=== PATIENT | female | born 1940 | race Caucasian/White ===

== ENCOUNTER 2021-07-25 12:43 | Inpatient (IN) | payer MEDICARE, MEDICAID, SELFPAY ==
--- NOTE | ~2021-07-25 | XR_ITS ---
EXAMINATION: XR FOOT, RIGHT CLINICAL INFORMATION: Right foot pain. COMPARISON: None TECHNIQUE: AP, lateral, and oblique views of the right foot. FINDINGS: There is no acute fracture or dislocation. The joint spaces are unremarkable. The tarsal bones are normally aligned. Very small plantar and retrocalcaneal spurs are seen. There is mild soft tissue swelling. XR/XR foot RT 2V IMPRESSION: 1. Mild soft tissue swelling without acute underlying osseous abnormality. 2. Very small degenerative calcaneal spurs.
--- NOTE | ~2021-07-25 | US_ITS ---
EXAMINATION: US ABDOMEN COMPLETE CLINICAL INFORMATION: Acute abdominal pain. Rule out obstruction.. COMPARISON: None TECHNIQUE: Real-time imaging of the abdominal viscera. FINDINGS: PANCREAS: Normal. ABDOMINAL AORTA: The proximal, mid, and distal segments are normal in caliber. Atherosclerotic calcifications noted. INFERIOR VENA CAVA: Visualized portions are normal. LIVER: Liver appears somewhat enlarged. There is a nodular Contour. Heterogeneous echogenicity. . Hepatic ascites. In the right lobe of the liver there is a 0.6 cm cyst. No suspicious liver lesion identified. There is no intrahepatic biliary duct dilatation seen. GALLBLADDER: Stones are seen in the gallbladder lumen. The gallbladder is physiologically distended without evidence of sludge, polyps, wall thickening or pericholecystic fluid. COMMON BILE DUCT: Normal in caliber measuring 0.3 cm in diameter. RIGHT KIDNEY: Normal. No hydronephrosis. No renal calculi or focal parenchymal lesions. The kidney measures 12.1 cm in maximum dimension. LEFT KIDNEY: Normal. No hydronephrosis. No renal calculi or focal parenchymal lesions. The kidney measures 10.2 cm in maximum dimension. SPLEEN: Calcification at the splenic hilum noted. Trace ascites. The spleen measures 9.6 cm in maximum dimension. FREE FLUID: None. US/US abdomen complete IMPRESSION: No biliary ductal dilatation. There is a gallstone present without inflammatory change of the gallbladder. Heterogeneous liver parenchyma with nodular Contour suspicious for cirrhosis. No suspicious liver lesion.
--- NOTE | ~2021-07-25 | US_ITS ---
EXAMINATION: US VENOUS ULTRASOUND WITH DOPPLER LOWER EXTREMITY, RIGHT CLINICAL INFORMATION: Pain COMPARISON: None TECHNIQUE: Ultrasound of the deep veins is performed from the hip to the calf with compression sonography and color and pulse Doppler assessment. Spectral analysis with color-flow imaging is performed. FINDINGS: There is normal venous compression and respiratory variation and augmented flow. The visualized common femoral vein, superficial femoral vein, profunda femoral vein, popliteal vein, and the trifurcation region shows no evidence of deep venous thrombosis. There is no significant popliteal fossa cyst. If the patient's symptoms persist, followup ultrasound in 5 days 7 days might be of value to exclude proximal propagation from a non-visualized calf vein. US/US venous duplex LE RT IMPRESSION: No DVT demonstrated in the right lower extremity.
[2021-07-25 13:03] VITALS: BMI 16.1
[2021-07-25 13:13] VITALS: BP 151/70; PULSE 77; RESP 16; TEMP 36; O2SAT 97
--- NOTE | 2021-07-25 16:02 | P.HPPS_ITS ---
[facility] Date of Service: 07/25/21 Chief Complaint: Psychosis Sources of Information: patient interviewed and chart reviewed HPI Subjective Notes: [place] Warning and Section 12B Narrative: The patient is an 80-year-old [place] female, only [place]ican-speaking, , mother of 5 adult children, with good social support, living with her family with a long history of schizophrenia and dementia. The patient was brought into the emergency room of another facility since she threatened to kill herself with a screwdriver after an argument with her family. Apparently she wanted to go back to [place], she had an argument and she threatened to kill herself. She was rushed to the ED, assessed by the crisis team and transferred here for psychiatric stabilization. On the admission interview, the patient denies new symptoms she looks pleasantly confused, easily redirectable and she admitted that sporadic auditory hallucinations. She was unable to remember the argument that she had and she could not explain why she was here. She gave us permission to gather collateral information with her family. Past Psychiatric History: As per crisis report, the patient has a lifelong history of schizophrenia with prior treatment in [place]. It is unclear her medication management at this moment. Medical Evaluation Reviewed: Hospitalist Teresa Pending [facility] Family History: Denies Social History: born and raised in [place], with 5 adult children. She is only [place]-speaking and she has good social support, she carries a diagnosis of schizophrenia were nearly all her adult life. Substance History: Denies Trauma History: unclear Diagnostics Vital Signs (24Hr): Vital Signs - 24 hr 07/25/21 13:13 Temperature 96.8 F Pulse Rate 77 Respiratory Rate 16 Blood Pressure 151/70 H Pulse Oximetry 97 BMI result Body Mass Index 16.1 Labs Results: 07/26/21 09:11 Meds/Allergies Meds Home Medications Acetaminophen (Acetaminophen 325 Mg Tablet) 650 mg PO Q6H PRN PRN Reason: Headache/Pain Mild Scale (1-3) Al Hydroxide/Mg Hydroxide (Magnesium Hydrox/Alum Hydrox 30 Ml Oral.Susp) 30 ml PO Q6H PRN PRN Reason: Heartburn/Nausea Hydroxyzine HCl (Hydroxyzine Hcl 25 Mg Tablet) 25 mg PO BEDTIME PRN PRN Reason: Anxiety Last Admin: 07/25/21 20:14 Dose: 25 mg Documented by: Magnesium Hydroxide (Milk Of Magnesia 30 Ml Oral.Susp) 30 ml PO DAILY PRN PRN Reason: Constipation Risperidone (Risperidone 0.25 Mg Tablet) 0.25 mg PO BID PRN PRN Reason: Psychosis Last Admin: 07/25/21 22:30 Dose: 0.25 mg Documented by: Trazodone HCl (Trazodone Hcl 50 Mg Tablet) 50 mg PO BEDTIME PRN PRN Reason: Insomnia Last Admin: 07/25/21 19:41 Dose: 50 mg Documented by: Allergies Allergies Allergy/AdvReac Type Severity Reaction Status Date / Time Iodinated Contrast Media Allergy Unknown Verified 07/25/21 17:55 olanzapine AdvReac Unknown Verified 07/25/21 17:55 Mental Status Exam Mental Status Exam Patient Appearance: Appropriate Patient Orientation: Person Level of Consciousness: Awake Patient Behavior: Guarded, Passive and Suspicious Mood Description: Calm Affect Description: Blunted Patient Cognition Impaired: Yes Ability to Follow Directions: Fair Speech Pattern: Clear Memory Description: Recent Impaired Hallucinations: Auditory Delusions: Paranoid Ideation Thought Process: Illogical and Evasive Thought Content: positive for Poverty of Content Judgement: Poor Assessment & Plan Assessment & Plan (1) Schizophrenia: Status: Acute Code(s): F20.9 - Schizophrenia, unspecified (2) Dementia: Status: Acute Code(s): F03.90 - Unspecified dementia without behavioral disturbance Plan elderly [place] female with a long history of psychosis and dementia referred to this facility after she got agitated and threatened to kill herself. At the moment of the intake, the patient was having active psychotic symptoms. Plan 1. Gather collateral information. 2. We will keep from PRNs over the night and reassess in the morning. Patient educated on: diagnosis and therapeutic strategies Informed Consent: further education needed Reason for continued inpatient stay Substantial Risk for: inability to function, rapid decompensation and med/psych decompensation
--- NOTE | 2021-07-25 17:58 | PC.ADMIT ---
Patient is 80 year old female macanese speaking with chronic paranoid schizophrenia and Alzheimers type dementia.Arrived on unit via stretcher from [facility] where she was taken to ED from home after deciding to pack a suit case and go to [place]. When told she could not go patient got a screwdriver and threatened to kill herself. Patient resides with who also has dementia and son who is HCP. Patient dressed in hospital attire, appeared disheveled. Presented as calm and pleasant. Patient was oriented to unit. Vital signs taken. Admission assessment was attempted through interpretor. Patient speech appeared to be clear however content was disorganized. Patient endorsed AH. Memory appears impaired and patient was unable to provide history. Patient is reported to have been non compliant with medications. MEdical history includes a Hiatal Hernia. Patient is independent with ADL's and ambulation.
[2021-07-25] MEDS: traZODone HCL 50 MG TABLET PO (19:41)
[2021-07-25 19:51] VITALS: BP 152/81; PULSE 79; RESP 17; TEMP 36.2; O2SAT 99
[2021-07-25] MEDS: hydrOXYzine HCL 25 MG TABLET PO (20:14)
--- NOTE | 2021-07-25 21:15 | PC.NURSE ---
PT needs constant redirection. PT keeps going into other PTs room, but is easily redirected. Staff needs to stay with PT while she is awake to frequently redirect her. PT also went up to another female PT and started kissing her on the mouth, until staff could intervene.
[2021-07-25] MEDS: risperiDONE 0.25 MG TABLET PO (22:30)
[2021-07-26 08:00] VITALS: BP 131/75; PULSE 101; TEMP 36.3; O2SAT 97
[2021-07-26 09:43] LABS: Alanine Aminotransferase 7 U/L (0-31); Albumin Level 3.8 g/dL (3.5-5.0); Alkaline Phosphatase 59 U/L (39-117); Anion Gap 13 (12-20); Aspartate Amino Transferase 14 U/L (5-31); Bilirubin Total 1.7 mg/dL (0.0-1.0); Blood Urea Nitrogen 16 mg/dL (9-16); Calcium 9.3 mg/dL (8.4-10.2); Carbon Dioxide 24 mmol/L (22-29); Chloride 102 mmol/L (96-108); Cholesterol 176 mg/dL; Creatinine Clr Calc Pharmacy 30.8; Estimated Glomerular Filt Rate > 60; Glucose Fasting 165 mg/dL (60-99); HDL Cholesterol 66 mg/dL; LDL Cholesterol Calculated 96 mg/dl; Potassium 4.1 mmol/L (3.3-5.1); Sodium 135 mmol/L (135-145); Total Protein 6.5 g/dL (6.5-8.0); Triglycerides 71 mg/dL
--- NOTE | 2021-07-26 10:16 | HO.PM.IMCN ---
History of Present Illness Data of Consult Service Date: 07/26/21 Primary Care Provider: Unknown Physician HPI Reason for consult: Routine Medical H&P 80 yo F with a PMH schizophrenia, alzheimer's dementia who is admitted to the [facility] unit. Medical consult requested for routine medical H&P per protocol. Patient is seen and examined in their room. She is resting comfortably at this time and does not talk much. PMH (limited due to patient's current status) Alzheimer's dementia PSH unable to determine FH unable to determine SH unable to determine Review of Systems Review of Systems: unable to determine due to mental status PMF Social History Household Members: Children Housing: Apartment Do you presently have visiting nurse or other home services: No Patient Tobacco Use Status: Former Tobacco user Patient Interested in Nicotine Replacement: No Use of substances other than those prescribed or required for medical reasons: No Currently Displaying Signs/Symptoms of Drug Intoxication Withdrawal: No Have you been hit, kicked, punched, or otherwise hurt by someone within the past year? If so, by whom?: No Do you feel safe in your current relationship?: No Current Relationship Is there a partner from a previous relationship who is making you feel unsafe now?: No (Patient unable to answer questions.) Are you made to feel afraid or neglected: No Advance Directives: Yes Advance Directives Information Provided: No Advance Directives on File: No Do you have thoughts of harming others: None Do you have a plan to hurt others: No Plan Recently lost weight without trying: No Eating poorly because of decreased appetite: No Nutrition Risks: No Nutritional Risk Patient : No : No Poor oral hygiene: Yes service: No Sexual orientation: Straight/Heterosexual Meds Allergies Allergy/AdvReac Type Severity Reaction Status Date / Time Iodinated Contrast Media Allergy Unknown Verified 07/25/21 17:55 olanzapine AdvReac Unknown Verified 07/25/21 17:55 Active Medications: Current Medications Acetaminophen (Acetaminophen 325 Mg Tablet) 650 mg PO Q6H PRN PRN Reason: Headache/Pain Mild Scale (1-3) Al Hydroxide/Mg Hydroxide (Magnesium Hydrox/Alum Hydrox 30 Ml Oral.Susp) 30 ml PO Q6H PRN PRN Reason: Heartburn/Nausea Hydroxyzine HCl (Hydroxyzine Hcl 25 Mg Tablet) 25 mg PO BEDTIME PRN PRN Reason: Anxiety Last Admin: 07/25/21 20:14 Dose: 25 mg Documented by: Magnesium Hydroxide (Milk Of Magnesia 30 Ml Oral.Susp) 30 ml PO DAILY PRN PRN Reason: Constipation Risperidone (Risperidone 0.25 Mg Tablet) 0.25 mg PO BID PRN PRN Reason: Psychosis Last Admin: 07/25/21 22:30 Dose: 0.25 mg Documented by: Trazodone HCl (Trazodone Hcl 50 Mg Tablet) 50 mg PO BEDTIME PRN PRN Reason: Insomnia Last Admin: 07/25/21 19:41 Dose: 50 mg Documented by: Home Medications Medication Instructions Recorded Confirmed Last Taken Type Haldol 1 mg PO TID 07/25/21 07/25/21 Unknown History chlorpromazine 25 mg PO BEDTIME PRN 07/25/21 07/25/21 Unknown History diphenhydramine HCl 25 tab PO Q4H PRN 07/25/21 07/25/21 Unknown History melatonin 3 mg PO BEDTIME 07/25/21 07/25/21 07/23/21 21:56 History pantoprazole 40 mg tablet,delayed 40 mg PO DAILY 07/25/21 07/25/21 07/25/21 06:56 History release risperidone 0.25 mg PO BID PRN 07/25/21 07/25/21 Unknown History trazodone 25 mg PO BEDTIME 07/25/21 07/25/21 Unknown History Physical Exam Vital Signs and Narrative: Vital Signs: Last Vital Signs Temp 97.3 F 07/26/21 08:00 Pulse 101 H 07/26/21 08:00 Resp 17 07/25/21 19:51 BP 131/75 07/26/21 08:00 Pulse Ox 97 07/26/21 08:00 BMI result Body Mass Index 16.1 Const: Other: General - no acute distress, appears comfortable Cardiovascular - regular rate and rhythm, S1-S2 Lungs - normal respiratory effort, clear to auscultation bilaterally, no wheezing Abdomen - soft, nontender, no rebound or guarding Extremities - no edema bilaterally Neuro - CN 2-12 appear to be in tact however unable to fully complete exam due to patients status Results Labs CBC and Chem 7: 07/26/21 09:11 Labs: Laboratory Results - last 24 hr 07/26/21 09:11 Anion Gap 13 Estim Creat Clear Calc 30.8 Estimated GFR > 60 Fasting Glucose 165 H Calcium 9.3 Total Bilirubin 1.7 H AST 14 ALT 7 Alkaline Phosphatase 59 Total Protein 6.5 Albumin 3.8 Triglycerides 71 Cholesterol 176 LDL Cholesterol, Calc 96 HDL Cholesterol 66 Assessment and Plan (1) Routine medical exam: Status: Acute Plan 80 yo F with a H schizophrenia, alzheimer's dementia who is admitted to the [facility]. Medical consult requested for routine medical H&P per protocol. Patient with schizophrenia and dementia. History limited but appears to be stable medically at this time. Check routine labs if not done so at transferring facility Please reconsult PRN.
--- NOTE | 2021-07-26 11:52 | P.PNPSI_ITS ---
Subjective Subjective Date of Service: 07/26/21 Reason For Visit: Psychosis Subjective Notes: Conditional Voluntary Interim History: the nursing staff reported that yesterday in the evening become very disorganized and aggressive and she needed to be medicated with Ativan and trazodone with limited response. She also received Risperdal 0.5 with no improvement. On interview on [place] the patient was pleasantly confused unable to remember what happened yesterday. We will try to gather more collateral information. Mental Status Exam Mental Status Exam Patient Appearance: Appropriate Patient Orientation: Person and Situation Level of Consciousness: Awake Patient Behavior: Guarded and Passive Mood Description: Withdrawn Affect Description: Labile Patient Cognition Impaired: Yes Ability to Follow Directions: Fair Speech Pattern: Clear Hallucinations: Auditory Delusions: Paranoid Ideation Thought Process: Illogical and Evasive Thought Content: positive for [place] and positive for Poverty of Content Judgement: Fair Diagnostics Vital Signs (24Hr): Vital Signs - 24 hr 07/25/21 13:13 07/25/21 19:51 07/26/21 08:00 Temperature 96.8 F 97.1 F 97.3 F Pulse Rate 77 79 101 H Respiratory Rate 16 17 Blood Pressure 151/70 H 152/81 H 131/75 Pulse Oximetry 97 99 97 BMI result Body Mass Index 16.1 Labs Results: 07/26/21 09:11 Labs: Laboratory Results - last 48 hr 07/26/21 09:11 Sodium 135 Potassium 4.1 Chloride 102 Carbon Dioxide 24 Anion Gap 13 BUN 16 Creatinine 0.75 Estim Creat Clear Calc 30.8 Estimated GFR > 60 Fasting Glucose 165 H Calcium 9.3 Total Bilirubin 1.7 H AST 14 ALT 7 Alkaline Phosphatase 59 Total Protein 6.5 Albumin 3.8 Triglycerides 71 Cholesterol 176 LDL Cholesterol, Calc 96 HDL Cholesterol 66 Medications Medications Current Medications Acetaminophen (Acetaminophen 325 Mg Tablet) 650 mg PO Q6H PRN PRN Reason: Headache/Pain Mild Scale (1-3) Al Hydroxide/Mg Hydroxide (Magnesium Hydrox/Alum Hydrox 30 Ml Oral.Susp) 30 ml PO Q6H PRN PRN Reason: Heartburn/Nausea Hydroxyzine HCl (Hydroxyzine Hcl 25 Mg Tablet) 25 mg PO BEDTIME PRN PRN Reason: Anxiety Last Admin: 07/25/21 20:14 Dose: 25 mg Documented by: Magnesium Hydroxide (Milk Of Magnesia 30 Ml Oral.Susp) 30 ml PO DAILY PRN PRN Reason: Constipation Olanzapine (Olanzapine 2.5 Mg Tablet) 2.5 mg PO DAILY@1700 ALICJA Olanzapine (Olanzapine 2.5 Mg Tablet) 2.5 mg PO BID PRN PRN Reason: psychosis Risperidone (Risperidone 0.25 Mg Tablet) 0.25 mg PO BID PRN PRN Reason: Psychosis Last Admin: 07/25/21 22:30 Dose: 0.25 mg Documented by: Trazodone HCl (Trazodone Hcl 50 Mg Tablet) 50 mg PO BEDTIME PRN PRN Reason: Insomnia Last Admin: 07/25/21 19:41 Dose: 50 mg Documented by: Allergies Allergies Allergy/AdvReac Type Severity Reaction Status Date / Time Iodinated Contrast Media Allergy Unknown Verified 07/25/21 17:55 olanzapine AdvReac Unknown Verified 07/25/21 17:55 Assessment & Plan Assessment & Plan (1) Schizophrenia: Status: Acute Code(s): F20.9 - Schizophrenia, unspecified (2) Dementia: Status: Acute Code(s): F03.90 - Unspecified dementia without behavioral disturbance Plan elderly Israeli female with a long history of psychosis and dementia referred to this facility after she got agitated and threatened to kill herself. At the moment of the intake, the patient was having active psychotic symptoms. Plan 1. Gather collateral information. 2. Zyprexa 2.5 mg p.o. q.h.s. at 17:00 and PRNs I spent __20____ minutes with the patient and/or on the patient floor today, greater than?50% of which was spent counseling/coordinating care. Reason for contiued inpatient stay Substantial Risk for: inability to function, rapid decompensation and med/psych decompensation
[2021-07-26 13:26] LABS: Appearance Urine CLEAR; Color Urine YELLOW; Glucose Urine UA NEG (NEG); Leukocyte Esterase Urine NEG (NEG); Nitrite Urine NEG (NEG); Specific Gravity - Urine <= 1.005 (1.005-1.025); Urine Blood NEG (NEG); Urine Ketones NEG (NEG); Urine Protein NEG (NEG-TRACE)
[2021-07-26 14:39] VITALS: BMI 16.1
--- NOTE | 2021-07-26 14:46 | MHC.CLN ---
NUTRITION QUALIFIES MODERATE MALNUTRITION IN THE CONTEXT OF CHRONIC ILLNESS. SEE NUTRITION CLINICAL ASSESSMENT 07/26/21. DIET=REGULAR. ADDING ENSURE BID TO PROVIDE ADDITIONAL 700 KCAL, 40 G PROTEIN.
[2021-07-26 18:00] VITALS: BP 111/65; PULSE 88; RESP 18; TEMP 37; O2SAT 96
[2021-07-26] MEDS: risperiDONE 0.5 MG TABLET PO (20:13)
[2021-07-26] MEDS: Melatonin 3 MG TABLET PO (20:13)
[2021-07-27] MEDS: Omeprazole 20 MG CAPSULE.DR PO (05:46)
[2021-07-27 07:17] LABS: MANUAL DIFF FLAG NO
[2021-07-27 07:19] LABS: Basophils Percent Auto 0.4 % (0-2); Eosinophils Percent Auto 0.6 % (0-4); Hematocrit 37.8 % (37.0-47.0); Hemoglobin 12.5 g/dl (12.0-16.0); Imm Gran Abs Auto 0.01 X10*3/uL (0.00-0.03); Imm Gran Pct Auto 0.2 % (0.0-0.4); Lymphocytes Absolute Auto 1.7 X10*3/uL (1.2-4.9); Mean Corpuscular HGB Conc 33.1 g/dl (31.0-35.0); Mean Corpuscular Hemoglobin 28.3 pg (27.0-33.0); Mean Corpuscular Volume 85.7 fL (80.0-98.0); Monocytes Absolute Auto 0.4 X10*3/uL (0.1-1.2); Monocytes Percent Auto 8.6 % (2-11); Neutrophils Absolute Auto 2.9 x10*3/uL (2.0-8.3); Neutrophils Percent Auto 57.2 % (45-73); Platelet Count 201 X10*3/uL (160-400); Red Blood Count 4.41 X10*6/uL (4.20-5.50); Red Cell Distribution Width 14.2 % (11.0-16.0)
[2021-07-27 07:47] LABS: Alkaline Phosphatase 60 U/L (39-117); Anion Gap 10 (12-20); Aspartate Amino Transferase 19 U/L (5-31); Bilirubin Direct 0.5 mg/dL (0.0-0.5); Bilirubin Total 1.3 mg/dL (0.0-1.0); Blood Urea Nitrogen 19 mg/dL (9-16); Calcium 9.5 mg/dL (8.4-10.2); Carbon Dioxide 28 mmol/L (22-29); Chloride 105 mmol/L (96-108); Cholesterol 191 mg/dL; Creatinine Clr Calc Pharmacy 33.4; Estimated Glomerular Filt Rate > 60; Glucose Random 107 mg/dL (60-115); HDL Cholesterol 69 mg/dL; LDL Cholesterol Calculated 108 mg/dl; Potassium 4.1 mmol/L (3.3-5.1); Sodium 139 mmol/L (135-145); Total Protein 6.9 g/dL (6.5-8.0); Triglycerides 74 mg/dL
[2021-07-27 07:57] LABS: Thyroid Stimulating Hormone 0.89 uIU/mL (0.32-4.0)
[2021-07-27 08:06] LABS: Estimated Average Glucose 108 mg/dL; Hemoglobin A1C 117.5605 umol/L; Hemoglobin A1c % 5.4 %
[2021-07-27 08:12] LABS: Alanine Aminotransferase 10 U/L (0-31)
[2021-07-27 08:27] VITALS: BP 127/73; PULSE 84; TEMP 36.2
[2021-07-27] MEDS: risperiDONE 0.5 MG TABLET PO ×2 (08:54→19:33)
--- NOTE | 2021-07-27 13:35 | HO.PSYCHPN ---
Subjective Subjective Date of Service: 07/27/21 Reason For Visit: Psychosis Subjective Notes: Conditional Voluntary Interim History: Patient with a history of psychotic disorder agitation at night. Discussed changing to Q 5 starting the day one-to-one at night continue low-dose antipsychotic Mental Status Exam Mental Status Exam Patient Appearance: Appropriate Patient Orientation: Person and Situation Level of Consciousness: Awake Patient Behavior: Guarded and Passive Mood Description: Withdrawn Affect Description: Labile Patient Cognition Impaired: Yes Ability to Follow Directions: Fair Speech Pattern: Clear Hallucinations: Auditory Delusions: Paranoid Ideation Thought Process: Illogical and Evasive Thought Content: positive for [place] and positive for Poverty of Content Judgement: Fair Diagnostics Vital Signs (24Hr): Vital Signs - 24 hr 07/26/21 18:00 07/27/21 08:27 Temperature 98.6 F 97.1 F Pulse Rate 88 84 Respiratory Rate 18 Blood Pressure 111/65 127/73 Pulse Oximetry 96 BMI result Body Mass Index 16.1 Labs Results: 07/27/21 07:12 07/27/21 07:12 Labs: Laboratory Results - last 48 hr 07/26/21 07/26/21 07/27/21 09:11 12:50 07:12 WBC 5.0 RBC 4.41 Hgb 12.5 Hct 37.8 MCV 85.7 MCH 28.3 MCHC 33.1 RDW 14.2 Plt Count 201 MPV 10.0 Immature Gran % (Auto) 0.2 Neut % (Auto) 57.2 Lymph % (Auto) 33.0 [place] % (Auto) 8.6 Eos % (Auto) 0.6 Baso % (Auto) 0.4 Lymph # (Auto) 1.7 [place] # (Auto) 0.4 Eos # (Auto) 0.0 Baso # (Auto) 0.0 Abs Immat Gran (auto) 0.01 Absolute Neuts (auto) 2.9 Absolute Nucleated RBC 0.000 Nucleated RBC % (auto) 0.0 Sodium 135 Potassium 4.1 Chloride 102 Carbon Dioxide 24 Anion Gap 13 BUN 16 Creatinine 0.75 Estim Creat Clear Calc 30.8 Estimated GFR > 60 Random Glucose Fasting Glucose 165 H Estimat Average Glucose Hemoglobin A1c % Calcium 9.3 Total Bilirubin 1.7 H Direct Bilirubin AST 14 ALT 7 Alkaline Phosphatase 59 Total Protein 6.5 Albumin 3.8 Triglycerides 71 Cholesterol 176 LDL Cholesterol, Calc 96 HDL Cholesterol 66 TSH Urine Color YELLOW Urine Appearance CLEAR Urine pH 7.0 Ur Specific [place] <= 1.005 Urine Protein NEG Urine Glucose (UA) NEG Urine Ketones NEG Urine Blood NEG Urine Nitrite NEG Ur Leukocyte Esterase NEG 07/27/21 07/27/21 07:12 07:12 WBC RBC Hgb Hct MCV MCH MCHC RDW Plt Count MPV Immature Gran % (Auto) Neut % (Auto) Lymph % (Auto) [place] % (Auto) Eos % (Auto) Baso % (Auto) Lymph # (Auto) [place] # (Auto) Eos # (Auto) Baso # (Auto) Abs Immat Gran (auto) Absolute Neuts (auto) Absolute Nucleated RBC Nucleated RBC % (auto) Sodium 139 Potassium 4.1 Chloride 105 Carbon Dioxide 28 Anion Gap 10 L BUN 19 H Creatinine 0.69 Estim Creat Clear Calc 33.4 Estimated GFR > 60 Random Glucose 107 Fasting Glucose Estimat Average Glucose 108 Hemoglobin A1c % 5.4 Calcium 9.5 Total Bilirubin 1.3 H Direct Bilirubin 0.5 AST 19 ALT 10 Alkaline Phosphatase 60 Total Protein 6.9 Albumin 4.0 Triglycerides 74 Cholesterol 191 LDL Cholesterol, Calc 108 HDL Cholesterol 69 TSH 0.89 Urine Color Urine Appearance Urine pH Ur Specific [place] Urine Protein Urine Glucose (UA) Urine Ketones Urine Blood Urine Nitrite Ur Leukocyte Esterase Medications Medications Current Medications Acetaminophen (Acetaminophen 325 Mg Tablet) 650 mg PO Q6H PRN PRN Reason: Headache/Pain Mild Scale (1-3) Al Hydroxide/Mg Hydroxide (Magnesium Hydrox/Alum Hydrox 30 Ml Oral.Susp) 30 ml PO Q6H PRN PRN Reason: Heartburn/Nausea Hydroxyzine HCl (Hydroxyzine Hcl 25 Mg Tablet) 25 mg PO BEDTIME PRN PRN Reason: Anxiety Last Admin: 07/25/21 20:14 Dose: 25 mg Documented by: Lorazepam (Lorazepam 0.5 Mg Tablet) 0.5 mg PO Q8H PRN PRN Reason: Anxiety Magnesium Hydroxide (Milk Of Magnesia 30 Ml Oral.Susp) 30 ml PO DAILY PRN PRN Reason: Constipation Melatonin (Melatonin 3 Mg Tablet) 3 mg PO BEDTIME [facility] Last Admin: 07/26/21 20:13 Dose: 3 mg Documented by: Omeprazole (Omeprazole 20 Mg Capsule.) 20 mg PO DAILY@0630 [facility] Last Admin: 07/27/21 05:46 Dose: 20 mg Documented by: Risperidone (Risperidone 0.5 Mg Tablet) 0.5 mg PO BID [facility]ICJA Last Admin: 07/27/21 08:54 Dose: 0.5 mg Documented by: Trazodone HCl (Trazodone Hcl 50 Mg Tablet) 50 mg PO BEDTIME PRN PRN Reason: Insomnia Last Admin: 07/25/21 19:41 Dose: 50 mg Documented by: Allergies Allergies Allergy/AdvReac Type Severity Reaction Status Date / Time Iodinated Contrast Media Allergy Unknown Verified 07/25/21 17:55 olanzapine AdvReac Unknown Verified 07/25/21 17:55 Assessment & Plan Assessment & Plan (1) Schizophrenia: Status: Acute Code(s): F20.9 - Schizophrenia, unspecified (2) Dementia: Status: Acute Code(s): F03.90 - Unspecified dementia without behavioral disturbance Plan elderly Taiwanese female with a long history of psychosis and dementia referred to this facility after she got agitated and threatened to kill herself. At the moment of the intake, the patient was having active psychotic symptoms. Plan 1. Gather collateral information. 2. Zyprexa 2.5 mg p.o. q.h.s. at 17:00 and PRNs Current note for 07/27/2021 Patient on Risperdal 0.5 b.i.d. continue plan of care case reviewed treatment plan I spent minutes with the patient and/or on the patient floor today, greater than?50% of which was spent counseling/coordinating care. Reason for contiued inpatient stay Substantial Risk for: inability to function and rapid decompensation
--- NOTE | 2021-07-27 15:53 | PC.NURSE ---
Patient order for safety checks changed. 1:1 now 7p-7a only.
[2021-07-27 18:00] VITALS: BP 131/66; PULSE 76; RESP 20; TEMP 36.7; O2SAT 98
[2021-07-27] MEDS: traZODone HCL 50 MG TABLET PO (19:33)
[2021-07-27] MEDS: Melatonin 3 MG TABLET PO (19:33)
[2021-07-27] MEDS: LORazepam 0.5 MG TABLET PO (21:13)
[2021-07-27] MEDS: hydrOXYzine HCL 25 MG TABLET PO (21:13)
[2021-07-28 08:26] VITALS: BP 141/73; PULSE 99; RESP 17; TEMP 36.4; O2SAT 98
[2021-07-28] MEDS: risperiDONE 0.5 MG TABLET PO ×2 (08:32→21:20)
[2021-07-28] MEDS: Acetaminophen 325 MG TABLET 650 MG PO ×2 (08:32→21:25)
[2021-07-28 20:43] VITALS: PULSE 87; RESP 16; TEMP 36.6; O2SAT 98
--- NOTE | 2021-07-28 21:18 | HO.PSYCHPN ---
Subjective Subjective Date of Service: 07/28/21 Reason For Visit: Psychosis Subjective Notes: Conditional Voluntary Interim History: Patient did well with 5 minute checks during the day did well in the evening. Patient less agitated on Risperdal Diagnostics Vital Signs (24Hr): Vital Signs - 24 hr 07/28/21 08:26 07/28/21 20:43 Temperature 97.5 F 98 F Pulse Rate 99 87 Respiratory Rate 17 16 Blood Pressure 141/73 H Pulse Oximetry 98 98 BMI result Body Mass Index 16.1 Labs Results: 07/27/21 07:12 07/27/21 07:12 Labs: Laboratory Results - last 48 hr 07/27/21 07/27/21 07/27/21 07:12 07:12 07:12 WBC 5.0 RBC 4.41 Hgb 12.5 Hct 37.8 MCV 85.7 MCH 28.3 MCHC 33.1 RDW 14.2 Plt Count 201 MPV 10.0 Immature Gran % (Auto) 0.2 Neut % (Auto) 57.2 Lymph % (Auto) 33.0 Steele % (Auto) 8.6 Eos % (Auto) 0.6 Baso % (Auto) 0.4 Lymph # (Auto) 1.7 Steele # (Auto) 0.4 Eos # (Auto) 0.0 Baso # (Auto) 0.0 Abs Immat Gran (auto) 0.01 Absolute Neuts (auto) 2.9 Absolute Nucleated RBC 0.000 Nucleated RBC % (auto) 0.0 Sodium 139 Potassium 4.1 Chloride 105 Carbon Dioxide 28 Anion Gap 10 L BUN 19 H Creatinine 0.69 Estim Creat Clear Calc 33.4 Estimated GFR > 60 Random Glucose 107 Estimat Average Glucose 108 Hemoglobin A1c % 5.4 Calcium 9.5 Total Bilirubin 1.3 H Direct Bilirubin 0.5 AST 19 ALT 10 Alkaline Phosphatase 60 Total Protein 6.9 Albumin 4.0 Triglycerides 74 Cholesterol 191 LDL Cholesterol, Calc 108 HDL Cholesterol 69 TSH 0.89 Medications Medications Current Medications Acetaminophen (Acetaminophen 325 Mg Tablet) 650 mg PO Q6H PRN PRN Reason: Headache/Pain Mild Scale (1-3) Last Admin: 07/28/21 08:32 Dose: 650 mg Documented by: Al Hydroxide/Mg Hydroxide (Magnesium Hydrox/Alum Hydrox 30 Ml Oral.Susp) 30 ml PO Q6H PRN PRN Reason: Heartburn/Nausea Hydroxyzine HCl (Hydroxyzine Hcl 25 Mg Tablet) 25 mg PO BEDTIME PRN PRN Reason: Anxiety Last Admin: 07/27/21 21:13 Dose: 25 mg Documented by: Lorazepam (Lorazepam 0.5 Mg Tablet) 0.5 mg PO Q8H PRN PRN Reason: Anxiety Last Admin: 07/27/21 21:13 Dose: 0.5 mg Documented by: Magnesium Hydroxide (Milk Of Magnesia 30 Ml Oral.Susp) 30 ml PO DAILY PRN PRN Reason: Constipation Melatonin (Melatonin 3 Mg Tablet) 3 mg PO BEDTIME [facility] Last Admin: 07/27/21 19:33 Dose: 3 mg Documented by: Omeprazole (Omeprazole 20 Mg Capsule.Dr) 20 mg PO DAILY@0630 [facility] Last Admin: 07/28/21 05:27 Dose: Not Given Documented by: Risperidone (Risperidone 0.5 Mg Tablet) 0.5 mg PO BID [facility] Last Admin: 07/28/21 08:32 Dose: 0.5 mg Documented by: Trazodone HCl (Trazodone Hcl 50 Mg Tablet) 50 mg PO BEDTIME PRN PRN Reason: Insomnia Last Admin: 07/27/21 19:33 Dose: 50 mg Documented by: Allergies Allergies Allergy/AdvReac Type Severity Reaction Status Date / Time Iodinated Contrast Media Allergy Unknown Verified 07/25/21 17:55 olanzapine AdvReac Unknown Verified 07/25/21 17:55 Assessment & Plan Assessment & Plan (1) Schizophrenia: Status: Acute Code(s): F20.9 - Schizophrenia, unspecified (2) Dementia: Status: Acute Code(s): F03.90 - Unspecified dementia without behavioral disturbance Plan elderly Bangladeshi female with a long history of psychosis and dementia referred to this facility after she got agitated and threatened to kill herself. At the moment of the intake, the patient was having active psychotic symptoms. Plan 1. Gather collateral information. 2. Zyprexa 2.5 mg p.o. q.h.s. at 17:00 and PRNs Current note for 07/27/2021 Patient on Risperdal 0.5 b.i.d. continue plan of care case reviewed treatment plan Current Note for 07/28/2021 Patient on Risperdal seems improved tolerating current does not is intrusive seems okay to change to 5 minute checks monitor gait monitor for intrusiveness I spent minutes with the patient and/or on the patient floor today, greater than?50% of which was spent counseling/coordinating care. Reason for contiued inpatient stay Substantial Risk for: inability to function and rapid decompensation
[2021-07-28] MEDS: Melatonin 3 MG TABLET PO (21:20)
[2021-07-29] MEDS: hydrOXYzine HCL 25 MG TABLET PO ×2 (01:59→19:50)
[2021-07-29] MEDS: traZODone HCL 50 MG TABLET PO (02:00)
[2021-07-29 06:00] VITALS: BP 116/67; PULSE 87; RESP 16; TEMP 36.4; O2SAT 95
[2021-07-29] MEDS: Omeprazole 20 MG CAPSULE.DR PO (08:15)
[2021-07-29] MEDS: risperiDONE 0.5 MG TABLET PO ×2 (08:15→19:50)
[2021-07-29] MEDS: Milk of Magnesia 30 ML ORAL.SUSP PO (09:57)
--- NOTE | 2021-07-29 13:37 | P.PNPSI_ITS ---
Subjective Subjective Date of Service: 07/29/21 Reason For Visit: Psychosis Subjective Notes: Conditional Voluntary Interim History: The nursing staff reported the patient slept well, she was very diffuse if and denies with other peers. She looks confused but easily redirectable. Her UTI workup was negative. Healthcare proxy is invoked today. Mental Status Exam Mental Status Exam Patient Appearance: Well Grooomed Patient Orientation: Person and Situation Level of Consciousness: Awake and Appropriate Patient Behavior: Guarded and Suspicious Mood Description: Withdrawn Affect Description: Constricted Patient Cognition Impaired: Yes Ability to Follow Directions: Good Speech Pattern: Clear Hallucinations: None Delusions: Paranoid Ideation Thought Process: Illogical and Evasive Thought Content: positive for [place] and positive for Poverty of Content Judgement: Fair Diagnostics Vital Signs (24Hr): Vital Signs - 24 hr 07/28/21 20:43 Temperature 98 F Pulse Rate 87 Respiratory Rate 16 Pulse Oximetry 98 BMI result Body Mass Index 16.1 Labs Results: 07/27/21 07:12 07/27/21 07:12 Medications Medications Current Medications Acetaminophen (Acetaminophen 325 Mg Tablet) 650 mg PO Q6H PRN PRN Reason: Headache/Pain Mild Scale (1-3) Last Admin: 07/28/21 21:25 Dose: 650 mg Documented by: Al Hydroxide/Mg Hydroxide (Magnesium Hydrox/Alum Hydrox 30 Ml Oral.Susp) 30 ml PO Q6H PRN PRN Reason: Heartburn/Nausea Hydroxyzine HCl (Hydroxyzine Hcl 25 Mg Tablet) 25 mg PO BEDTIME PRN PRN Reason: Anxiety Last Admin: 07/29/21 01:59 Dose: 25 mg Documented by: Lorazepam (Lorazepam 0.5 Mg Tablet) 0.5 mg PO Q8H PRN PRN Reason: Anxiety Last Admin: 07/27/21 21:13 Dose: 0.5 mg Documented by: Magnesium Hydroxide (Milk Of Magnesia 30 Ml Oral.Susp) 30 ml PO DAILY PRN PRN Reason: Constipation Last Admin: 07/29/21 09:57 Dose: 30 ml Documented by: Melatonin (Melatonin 3 Mg Tablet) 3 mg PO BEDTIME [facility] Last Admin: 07/28/21 21:20 Dose: 3 mg Documented by: Omeprazole (Omeprazole 20 Mg Capsule.Dr) 20 mg PO DAILY@0630 [facility] Last Admin: 07/29/21 08:15 Dose: 20 mg Documented by: Risperidone (Risperidone 0.5 Mg Tablet) 0.5 mg PO BID [facility] Last Admin: 07/29/21 08:15 Dose: 0.5 mg Documented by: Trazodone HCl (Trazodone Hcl 50 Mg Tablet) 50 mg PO BEDTIME PRN PRN Reason: Insomnia Last Admin: 07/29/21 02:00 Dose: 50 mg Documented by: Allergies Allergies Allergy/AdvReac Type Severity Reaction Status Date / Time Iodinated Contrast Media Allergy Unknown Verified 07/25/21 17:55 olanzapine AdvReac Unknown Verified 07/25/21 17:55 Assessment & Plan Assessment & Plan (1) Schizophrenia: Status: Acute Code(s): F20.9 - Schizophrenia, unspecified (2) Dementia: Status: Acute Code(s): F03.90 - Unspecified dementia without behavioral disturbance Plan elderly Sudanese female with a long history of psychosis and dementia referred to this facility after she got agitated and threatened to kill herself. At the moment of the intake, the patient was having active psychotic symptoms. Plan 1. Gather collateral information. 2. Continue Risperdal. I spent __20____ minutes with the patient and/or on the patient floor today, greater than?50% of which was spent counseling/coordinating care. Reason for contiued inpatient stay Substantial Risk for: inability to function, rapid decompensation and med/psych decompensation
--- NOTE | 2021-07-29 14:42 | MHC.CLN ---
F/U PT IS MODERATELY MALNOURISHED PO INTAKE FAIR PER NSG DIET RX: REGULAR-APPROPRIATE PT RECEIVING ENSURE BID TO INCREASE KCALS PROVIDES 700KCALS, 40G PROTEIN RECOMMEND ADDING WEEKLY WEIGHTS
[2021-07-29 19:40] VITALS: BP 126/67; PULSE 94; RESP 18; TEMP 36.4; O2SAT 95
[2021-07-29] MEDS: Melatonin 3 MG TABLET PO (19:50)
[2021-07-29] MEDS: Acetaminophen 325 MG TABLET 650 MG PO (20:43)
[2021-07-30] MEDS: LORazepam 0.5 MG TABLET PO (00:20)
[2021-07-30 06:00] VITALS: BP 126/65; PULSE 90; TEMP 36.4; O2SAT 96
[2021-07-30] MEDS: Omeprazole 20 MG CAPSULE.DR PO (09:09)
[2021-07-30] MEDS: risperiDONE 0.5 MG TABLET PO ×2 (09:09→20:57)
--- NOTE | 2021-07-30 15:05 | P.PNPSI_ITS ---
Subjective Subjective Date of Service: 07/30/21 Reason For Visit: Psychosis Subjective Notes: Conditional Voluntary Interim History: The nursing staff reported the patient took her meds but yesterday she tried to open doors and she was curious. She slept very well. We invoke her healthcare proxy. The staff reported the patient admitted auditory hallucinations with voices but she stated that she tries not to pay attention. On interview the patient was pleasantly confused, easily redirectable Mental Status Exam Mental Status Exam Patient Appearance: Well Grooomed Patient Orientation: Person and Situation Level of Consciousness: Alert Patient Behavior: Guarded and Suspicious Mood Description: Withdrawn Affect Description: Constricted Patient Cognition Impaired: Yes Ability to Follow Directions: Good Speech Pattern: Clear Hallucinations: Auditory Delusions: Paranoid Ideation Thought Process: Distracted and Linear Thought Content: positive for [place] and positive for Poverty of Content Judgement: Fair Diagnostics Vital Signs (24Hr): Vital Signs - 24 hr 07/29/21 19:40 07/30/21 06:00 Temperature 97.5 F 97.6 F Pulse Rate 94 90 Respiratory Rate 18 Blood Pressure 126/67 126/65 Pulse Oximetry 95 96 BMI result Body Mass Index 16.1 Labs Results: 07/27/21 07:12 07/27/21 07:12 Medications Medications Current Medications Acetaminophen (Acetaminophen 325 Mg Tablet) 650 mg PO Q6H PRN PRN Reason: Headache/Pain Mild Scale (1-3) Last Admin: 07/29/21 20:43 Dose: 650 mg Documented by: Al Hydroxide/Mg Hydroxide (Magnesium Hydrox/Alum Hydrox 30 Ml Oral.Susp) 30 ml PO Q6H PRN PRN Reason: Heartburn/Nausea Hydroxyzine HCl (Hydroxyzine Hcl 25 Mg Tablet) 25 mg PO BEDTIME PRN PRN Reason: Anxiety Last Admin: 07/29/21 19:50 Dose: 25 mg Documented by: Lorazepam (Lorazepam 0.5 Mg Tablet) 0.5 mg PO Q8H PRN PRN Reason: Anxiety Last Admin: 07/30/21 00:20 Dose: 0.5 mg Documented by: Magnesium Hydroxide (Milk Of Magnesia 30 Ml Oral.Susp) 30 ml PO DAILY PRN PRN Reason: Constipation Last Admin: 07/29/21 09:57 Dose: 30 ml Documented by: Melatonin (Melatonin 3 Mg Tablet) 3 mg PO BEDTIME [facility] Last Admin: 07/29/21 19:50 Dose: 3 mg Documented by: Omeprazole (Omeprazole 20 Mg Capsule.) 20 mg PO DAILY@0630 [facility] Last Admin: 07/30/21 09:09 Dose: 20 mg Documented by: Risperidone (Risperidone 0.5 Mg Tablet) 0.5 mg PO BID [facility] Last Admin: 07/30/21 09:09 Dose: 0.5 mg Documented by: Trazodone HCl (Trazodone Hcl 50 Mg Tablet) 50 mg PO BEDTIME PRN PRN Reason: Insomnia Last Admin: 07/29/21 02:00 Dose: 50 mg Documented by: Allergies Allergies Allergy/AdvReac Type Severity Reaction Status Date / Time Iodinated Contrast Media Allergy Unknown Verified 07/25/21 17:55 olanzapine AdvReac Unknown Verified 07/25/21 17:55 Assessment & Plan Assessment & Plan (1) Schizophrenia: Status: Acute Code(s): F20.9 - Schizophrenia, unspecified (2) Dementia: Status: Acute Code(s): F03.90 - Unspecified dementia without behavioral disturbance Plan elderly Ugandan female with a long history of psychosis and dementia referred to this facility after she got agitated and threatened to kill herself. At the moment of the intake, the patient was having active psychotic symptoms. Plan 1. Gather collateral information. 2. Continue Risperdal. I spent ___20___ minutes with the patient and/or on the patient floor today, greater than?50% of which was spent counseling/coordinating care. Reason for contiued inpatient stay Substantial Risk for: inability to function, rapid decompensation and med/psych decompensation
[2021-07-30 18:00] VITALS: BP 135/65; PULSE 77; TEMP 36.3; O2SAT 98
[2021-07-30] MEDS: Melatonin 3 MG TABLET PO (20:56)
[2021-07-30] MEDS: hydrOXYzine HCL 25 MG TABLET PO (20:57)
[2021-07-31] MEDS: Omeprazole 20 MG CAPSULE.DR PO (05:25)
[2021-07-31] MEDS: risperiDONE 0.5 MG TABLET PO (08:04)
[2021-07-31 08:44] VITALS: BP 127/60; PULSE 91; RESP 16; TEMP 36.7; O2SAT 98
--- NOTE | 2021-07-31 13:07 | PC.NURSE ---
This copy writer attempted to administer [facility] screen for this pt. Pt unable to complete screen due to decline in cognition. Pt also stated she does not read or write. Nursing staff informed.
--- NOTE | 2021-07-31 14:20 | MHC.CLN ---
F/U PT IS MODERATELY MALNOURISHED PO INTAKE FAIR TO GOOD DIET RX: REGULAR-APPROPRIATE PT RECEIVING ENSURE BID TO INCREASE [facility] PROVIDES 700KCALS, 40G PROTEIN WEEKLY WEIGHTS IN PLACE MONITOR PO INTAKE AND SUPPLEMENT ACCEPTANCE CLOSELY
--- NOTE | 2021-07-31 15:34 | P.PNPSI_ITS ---
Subjective Subjective Date of Service: 07/31/21 Reason For Visit: Psychosis Subjective Notes: Conditional Voluntary Interim History: the nursing staff reported the patient usually is up all night and she is sleeping during the day. A day she is confused with chronic auditory hallucinations. On interview the patient reports that she is doing fine and she looks pleasantly confused in [place]ian Mental Status Exam Mental Status Exam Patient Appearance: Well Grooomed Patient Orientation: Person and Situation Level of Consciousness: Awake Patient Behavior: Cooperative Mood Description: Constricted Affect Description: Depressed Patient Cognition Impaired: Yes Ability to Follow Directions: Good Speech Pattern: Clear Hallucinations: Auditory Delusions: Paranoid Ideation Thought Process: Linear Thought Content: positive for [place] and positive for Poverty of Content Judgement: Fair Diagnostics Vital Signs (24Hr): Vital Signs - 24 hr 07/30/21 18:00 07/31/21 08:44 Temperature 97.4 F 98.0 F Pulse Rate 77 91 Respiratory Rate 16 Blood Pressure 135/65 127/60 Pulse Oximetry 98 98 BMI result Body Mass Index 16.1 Labs Results: 07/27/21 07:12 07/27/21 07:12 Medications Medications Current Medications Acetaminophen (Acetaminophen 325 Mg Tablet) 650 mg PO Q6H PRN PRN Reason: Headache/Pain Mild Scale (1-3) Last Admin: 07/29/21 20:43 Dose: 650 mg Documented by: Al Hydroxide/Mg Hydroxide (Magnesium Hydrox/Alum Hydrox 30 Ml Oral.Susp) 30 ml PO Q6H PRN PRN Reason: Heartburn/Nausea Hydroxyzine HCl (Hydroxyzine Hcl 25 Mg Tablet) 25 mg PO BEDTIME PRN PRN Reason: Anxiety Last Admin: 07/30/21 20:57 Dose: 25 mg Documented by: Magnesium Hydroxide (Milk Of Magnesia 30 Ml Oral.Susp) 30 ml PO DAILY PRN PRN Reason: Constipation Last Admin: 07/29/21 09:57 Dose: 30 ml Documented by: Melatonin (Melatonin 3 Mg Tablet) 3 mg PO BEDTIME [facility] Last Admin: 07/30/21 20:56 Dose: 3 mg Documented by: Omeprazole (Omeprazole 20 Mg Capsule.) 20 mg PO DAILY@0630 [facility] Last Admin: 07/31/21 05:25 Dose: 20 mg Documented by: Risperidone (Risperidone 0.5 Mg Tablet) 0.5 mg PO BID [facility] Last Admin: 07/31/21 08:04 Dose: 0.5 mg Documented by: Trazodone HCl (Trazodone Hcl 50 Mg Tablet) 50 mg PO BEDTIME PRN PRN Reason: Insomnia Last Admin: 07/29/21 02:00 Dose: 50 mg Documented by: Allergies Allergies Allergy/AdvReac Type Severity Reaction Status Date / Time Iodinated Contrast Media Allergy Unknown Verified 07/25/21 17:55 olanzapine AdvReac Unknown Verified 07/25/21 17:55 Assessment & Plan Assessment & Plan (1) Schizophrenia: Status: Acute Code(s): F20.9 - Schizophrenia, unspecified (2) Dementia: Status: Acute Code(s): F03.90 - Unspecified dementia without behavioral disturbance Plan elderly Jordanian female with a long history of psychosis and dementia referred to this facility after she got agitated and threatened to kill herself. At the moment of the intake, the patient was having active psychotic symptoms. Plan 1. Gather collateral information. 2. Change Risperdal everything at bedtime. 3. Add trazodone 100 mg p.o. q.h.s. at night. I spent ___20___ minutes with the patient and/or on the patient floor today, greater than?50% of which was spent counseling/coordinating care. Reason for contiued inpatient stay Substantial Risk for: inability to function, rapid decompensation and med/psych decompensation
[2021-07-31 18:00] VITALS: BP 117/59; PULSE 98; RESP 20; TEMP 36.6; O2SAT 97
[2021-07-31] MEDS: risperiDONE 1 MG TABLET PO (19:33)
[2021-07-31] MEDS: Melatonin 3 MG TABLET PO (19:33)
[2021-07-31] MEDS: traZODone HCL 100 MG TABLET PO (19:33)
[2021-07-31] MEDS: hydrOXYzine HCL 25 MG TABLET PO (20:50)
[2021-07-31] MEDS: traZODone HCL 50 MG TABLET PO (20:50)
[2021-08-01] MEDS: Omeprazole 20 MG CAPSULE.DR PO (06:48)
[2021-08-01 07:15] VITALS: BP 133/60; PULSE 88; RESP 16; TEMP 36.7; O2SAT 95
--- NOTE | 2021-08-01 15:14 | HO.PSYCHPN ---
Subjective Subjective Date of Service: 08/01/21 Reason For Visit: Psychosis Subjective Notes: Conditional Voluntary Interim History: The nursing staff reported the patient more nurse at night and she gets into other's patient's room. She had been fully compliant with medications. Her speech is disorganized sings Turkish. She complains of chronic headaches and abdominal pain at times. On interview the patient denies new symptoms she looks pleasantly confused Mental Status Exam Mental Status Exam Patient Appearance: Well Grooomed Patient Orientation: Person and Situation Level of Consciousness: Awake Patient Behavior: Cooperative Mood Description: Withdrawn Affect Description: Constricted Patient Cognition Impaired: Yes Ability to Follow Directions: Good Speech Pattern: Clear Memory Description: Intact Hallucinations: None Thought Process: Illogical and Distracted Thought Content: positive for Poverty of Content and positive for Disorganized Judgement: Poor Diagnostics Vital Signs (24Hr): Vital Signs - 24 hr 07/31/21 18:00 08/01/21 07:15 Temperature 97.8 F 98.0 F Pulse Rate 98 88 Respiratory Rate 20 16 Blood Pressure 117/59 L 133/60 Pulse Oximetry 97 95 BMI result Body Mass Index 16.1 Labs Results: 07/27/21 07:12 07/27/21 07:12 Medications Medications Current Medications Acetaminophen (Acetaminophen 325 Mg Tablet) 650 mg PO Q6H PRN PRN Reason: Headache/Pain Mild Scale (1-3) Last Admin: 07/29/21 20:43 Dose: 650 mg Documented by: Al Hydroxide/Mg Hydroxide (Magnesium Hydrox/Alum Hydrox 30 Ml Oral.Susp) 30 ml PO Q6H PRN PRN Reason: Heartburn/Nausea Hydroxyzine HCl (Hydroxyzine Hcl 25 Mg Tablet) 25 mg PO BEDTIME PRN PRN Reason: Anxiety Last Admin: 07/31/21 20:50 Dose: 25 mg Documented by: Magnesium Hydroxide (Milk Of Magnesia 30 Ml Oral.Susp) 30 ml PO DAILY PRN PRN Reason: Constipation Last Admin: 07/29/21 09:57 Dose: 30 ml Documented by: Melatonin (Melatonin 3 Mg Tablet) 3 mg PO BEDTIME [facility] Last Admin: 07/31/21 19:33 Dose: 3 mg Documented by: Omeprazole (Omeprazole 20 Mg Capsule.) 20 mg PO DAILY@0630 [facility] Last Admin: 08/01/21 06:48 Dose: 20 mg Documented by: Risperidone (Risperidone 1 Mg Tablet) 1 mg PO BEDTIME [facility] Last Admin: 07/31/21 19:33 Dose: 1 mg Documented by: Trazodone HCl (Trazodone Hcl 50 Mg Tablet) 50 mg PO BEDTIME PRN PRN Reason: Insomnia Last Admin: 07/31/21 20:50 Dose: 50 mg Documented by: Trazodone HCl (Trazodone Hcl 100 Mg Tablet) 100 mg PO BEDTIME [facility] Last Admin: 07/31/21 19:33 Dose: 100 mg Documented by: Allergies Allergies Allergy/AdvReac Type Severity Reaction Status Date / Time Iodinated Contrast Media Allergy Unknown Verified 07/25/21 17:55 olanzapine AdvReac Unknown Verified 07/25/21 17:55 Assessment & Plan Assessment & Plan (1) Schizophrenia: Status: Acute Code(s): F20.9 - Schizophrenia, unspecified (2) Dementia: Status: Acute Code(s): F03.90 - Unspecified dementia without behavioral disturbance Plan elderly Malagasy female with a long history of psychosis and dementia referred to this facility after she got agitated and threatened to kill herself. At the moment of the intake, the patient was having active psychotic symptoms. Plan 1. Gather collateral information. 2. Change Risperdal everything at bedtime. 3. Add trazodone 100 mg p.o. q.h.s. at night. I spent ___20___ minutes with the patient and/or on the patient floor today, greater than?50% of which was spent counseling/coordinating care. Reason for contiued inpatient stay Substantial Risk for: inability to function, rapid decompensation and med/psych decompensation
[2021-08-01] MEDS: Acetaminophen 325 MG TABLET 650 MG PO ×2 (17:41→22:56)
[2021-08-01 17:54] VITALS: RESP 16
[2021-08-01 18:33] LABS: MANUAL DIFF FLAG NO
[2021-08-01 18:35] LABS: Basophils Percent Auto 0.4 % (0-2); Eosinophils Absolute Auto 0.1 X10*3/uL (0.0-0.4); Eosinophils Percent Auto 1.3 % (0-4); Hematocrit 36.7 % (37.0-47.0); Hemoglobin 11.7 g/dl (12.0-16.0); Imm Gran Abs Auto 0.02 X10*3/uL (0.00-0.03); Imm Gran Pct Auto 0.4 % (0.0-0.4); Lymphocytes Absolute Auto 1.1 X10*3/uL (1.2-4.9); Lymphocytes Percent Auto 23.2 % (20-40); Mean Corpuscular HGB Conc 31.9 g/dl (31.0-35.0); Mean Corpuscular Hemoglobin 28.8 pg (27.0-33.0); Mean Corpuscular Volume 90.4 fL (80.0-98.0); Monocytes Absolute Auto 0.4 X10*3/uL (0.1-1.2); Monocytes Percent Auto 8.8 % (2-11); Neutrophils Percent Auto 65.9 % (45-73); Platelet Count 143 X10*3/uL (160-400); Red Blood Count 4.06 X10*6/uL (4.20-5.50); White Blood Count 4.5 X10*3/uL (4.8-10.8)
[2021-08-01 18:57] LABS: Alanine Aminotransferase 15 U/L (0-31); Albumin Level 3.7 g/dL (3.5-5.0); Alkaline Phosphatase 70 U/L (39-117); Anion Gap 15 (12-20); Aspartate Amino Transferase 23 U/L (5-31); Bilirubin Direct 0.3 mg/dL (0.0-0.5); Bilirubin Total 0.7 mg/dL (0.0-1.0); Blood Urea Nitrogen 30 mg/dL (9-16); Calcium 9.2 mg/dL (8.4-10.2); Carbon Dioxide 23 mmol/L (22-29); Chloride 102 mmol/L (96-108); Creatinine Clr Calc Pharmacy 29.6; Estimated Glomerular Filt Rate > 60; Glucose Random 143 mg/dL (60-115); Potassium 4.3 mmol/L (3.3-5.1); Sodium 136 mmol/L (135-145); Total Protein 6.6 g/dL (6.5-8.0)
[2021-08-01] MEDS: Melatonin 3 MG TABLET PO (20:18)
[2021-08-01] MEDS: risperiDONE 1 MG TABLET PO (20:18)
[2021-08-01] MEDS: traZODone HCL 100 MG TABLET PO (20:18)
[2021-08-01] MEDS: hydrOXYzine HCL 25 MG TABLET PO (20:49)
[2021-08-01 21:11] VITALS: BP 100/60; PULSE 90; RESP 18; TEMP 36.9; O2SAT 96
[2021-08-02 07:40] VITALS: BP 113/55; PULSE 72; RESP 14; TEMP 36.3; O2SAT 95
[2021-08-02 14:43] VITALS: BMI 20.8
--- NOTE | 2021-08-02 15:05 | MHC.CLN ---
F/U PT IS MODERATELY MALNOURISHED PO INTAKE FAIR TO GOOD DIET RX: REGULAR-APPROPRIATE PT RECEIVING ENSURE BID TO INCREASE [facility] PROVIDES 700KCALS, 40G PROTEIN MONITOR PO INTAKE AND SUPPLEMENT ACCEPTANCE CLOSELY AWAITING WEEKLY WEIGHT TO FURTHER ASSESS STATUS
[2021-08-02] MEDS: Acetaminophen 325 MG TABLET 650 MG PO (20:23)
[2021-08-02] MEDS: Melatonin 3 MG TABLET PO (20:23)
[2021-08-02] MEDS: traZODone HCL 100 MG TABLET PO (20:23)
[2021-08-02] MEDS: risperiDONE 1 MG TABLET PO (20:23)
[2021-08-02] MEDS: hydrOXYzine HCL 25 MG TABLET PO (21:44)
[2021-08-02 22:02] VITALS: BP 115/68; PULSE 93; RESP 19; TEMP 37; O2SAT 97
[2021-08-03] MEDS: traZODone HCL 50 MG TABLET PO (00:44)
[2021-08-03] MEDS: Acetaminophen 325 MG TABLET 650 MG PO ×2 (03:08→23:20)
[2021-08-03] MEDS: Omeprazole 20 MG CAPSULE.DR PO (05:45)
[2021-08-03 08:00] VITALS: BP 99/51; PULSE 81; RESP 16; TEMP 36.8; O2SAT 96
--- NOTE | 2021-08-03 15:35 | P.PNPSI_ITS ---
Subjective Subjective Date of Service: 08/03/21 Reason For Visit: Psychosis Subjective Notes: Conditional Voluntary Healthcare Proxy: Yes Interim History: with patient. Discussed with Nursing. Interviewed with Yi-speaking staff. Presents as pleasantly confused. Reports that she has not been eating and not being served anything. Staff clarify the patient did eat breakfast this morning. She was hopeful that she would get lunch today. Unable to name hospital. Reports this is the 1st time she has been here. There has been ep isodes of some wondering and urinated in the trash can do to confusion. Medication Compliance: Yes Side effects from medications: No Attending Groups: No Review of Systems Acute medical concerns: No Review of Systems Review of Systems Yes Unobtainable due to mental status Mental Status Exam Mental Status Exam Narrative: Patient Appearance:?Well Grooomed Patient Orientation:?Person and Situation Level of Consciousness:?Awake Patient Behavior:?Cooperative Mood Description:?Withdrawn Affect Description:?Constricted Patient Cognition Impaired:?Yes Ability to Follow Directions:?Good Speech Pattern:?Clear Memory Description:?Intact Hallucinations:?None Thought Process:?Illogical and Distracted Thought Content:?positive for Poverty of Content and positive for Disorganized Judgement:?Poor Diagnostics Vital Signs (24Hr): Vital Signs - 24 hr 08/02/21 22:02 08/03/21 08:00 Temperature 98.6 F 98.2 F Pulse Rate 93 81 Respiratory Rate 19 16 Blood Pressure 115/68 99/51 L Pulse Oximetry 97 96 BMI result Body Mass Index 16.1 Labs Results: 08/01/21 18:20 08/01/21 18:20 Labs: Laboratory Results - last 48 hr 08/01/21 08/01/21 18:20 18:20 WBC 4.5 L RBC 4.06 L Hgb 11.7 L Hct 36.7 L MCV 90.4 MCH 28.8 MCHC 31.9 RDW 15.0 Plt Count 143 L D MPV 12.0 Immature Gran % (Auto) 0.4 Neut % (Auto) 65.9 Lymph % (Auto) 23.2 Humphreys % (Auto) 8.8 Eos % (Auto) 1.3 Baso % (Auto) 0.4 Lymph # (Auto) 1.1 L Humphreys # (Auto) 0.4 Eos # (Auto) 0.1 Baso # (Auto) 0.0 Abs Immat Gran (auto) 0.02 Absolute Neuts (auto) 3.0 Absolute Nucleated RBC 0.000 Nucleated RBC % (auto) 0.0 Sodium 136 Potassium 4.3 Chloride 102 Carbon Dioxide 23 Anion Gap 15 BUN 30 H D Creatinine 0.78 Estim Creat Clear Calc 29.6 Estimated GFR > 60 Random Glucose 143 H Calcium 9.2 Total Bilirubin 0.7 Direct Bilirubin 0.3 AST 23 ALT 15 Alkaline Phosphatase 70 Total Protein 6.6 Albumin 3.7 Imaging Radiology Impressions: ITS Impressions Abdomen Ultrasound 08/02/21 10:00 IMPRESSION: No biliary ductal dilatation. There is a gallstone present without inflammatory change of the gallbladder. Heterogeneous liver parenchyma with nodular Contour suspicious for cirrhosis. No suspicious liver lesion. Medications Medications Current Medications Acetaminophen (Acetaminophen 325 Mg Tablet) 650 mg PO Q6H PRN PRN Reason: Headache/Pain Mild Scale (1-3) Last Admin: 08/03/21 03:08 Dose: 650 mg Documented by: Al Hydroxide/Mg Hydroxide (Magnesium Hydrox/Alum Hydrox 30 Ml Oral.Susp) 30 ml PO Q6H PRN PRN Reason: Heartburn/Nausea Hydroxyzine HCl (Hydroxyzine Hcl 25 Mg Tablet) 25 mg PO BEDTIME PRN PRN Reason: Anxiety Last Admin: 08/02/21 21:44 Dose: 25 mg Documented by: Magnesium Hydroxide (Milk Of Magnesia 30 Ml Oral.Susp) 30 ml PO DAILY PRN PRN Reason: Constipation Last Admin: 07/29/21 09:57 Dose: 30 ml Documented by: Melatonin (Melatonin 3 Mg Tablet) 3 mg PO BEDTIME [facility] Last Admin: 08/02/21 20:23 Dose: 3 mg Documented by: Omeprazole (Omeprazole 20 Mg Capsule.Dr) 20 mg PO DAILY@0630 [facility] Last Admin: 08/03/21 05:45 Dose: 20 mg Documented by: Risperidone (Risperidone 1 Mg Tablet) 1 mg PO BEDTIME [facility] Last Admin: 08/02/21 20:23 Dose: 1 mg Documented by: Trazodone HCl (Trazodone Hcl 50 Mg Tablet) 50 mg PO BEDTIME PRN PRN Reason: Insomnia Last Admin: 08/03/21 00:44 Dose: 50 mg Documented by: Trazodone HCl (Trazodone Hcl 100 Mg Tablet) 100 mg PO BEDTIME [facility] Last Admin: 08/02/21 20:23 Dose: 100 mg Documented by: Allergies Allergies Allergy/AdvReac Type Severity Reaction Status Date / Time Iodinated Contrast Media Allergy Unknown Verified 07/25/21 17:55 olanzapine AdvReac Unknown Verified 07/25/21 17:55 Assessment & Plan Assessment & Plan (1) Schizophrenia: Status: Acute Code(s): F20.9 - Schizophrenia, unspecified (2) Dementia: Status: Acute Code(s): F03.90 - Unspecified dementia without behavioral disturbance Plan elderly Slovak female with a long history of psychosis and dementia referred to this facility after she got agitated and threatened to kill herself. At the moment of the intake, the patient was having active psychotic symptoms. Plan 1. Gather collateral information. 2. Change Risperdal everything at bedtime. 3. Add trazodone 100 mg p.o. q.h.s. at night. 08/03/2021: No changes to team to primary treatment plan I spent minutes with the patient and/or on the patient floor today, greater than?50% of which was spent counseling/coordinating care. Reason for contiued inpatient stay Substantial Risk for: inability to function
[2021-08-03 18:00] VITALS: BP 133/75; PULSE 89; RESP 14; TEMP 36.6; O2SAT 97
[2021-08-03] MEDS: Melatonin 3 MG TABLET PO (20:27)
[2021-08-03] MEDS: traZODone HCL 100 MG TABLET PO (20:27)
[2021-08-03] MEDS: risperiDONE 1 MG TABLET PO (20:27)
[2021-08-03] MEDS: hydrOXYzine HCL 25 MG TABLET PO (23:20)
--- NOTE | 2021-08-04 04:21 | PC.NURSE ---
despite trazadone and atarax administration, pt has remained awake throughout the night. she has exhibited disruptive behaviors in which she yelled down the hallway and has entered multiple pts rooms uninvited. pt has demonstrated a tendency to wander throughout the unit. pt has c/o of right ankle pain. she is noted to have a limp and right ankle swelling. she was given tylenol 650 mg po for pain.
[2021-08-04 08:00] VITALS: BP 100/59; PULSE 86; RESP 16; TEMP 37; O2SAT 97
[2021-08-04] MEDS: Omeprazole 20 MG CAPSULE.DR PO (09:15)
--- NOTE | 2021-08-04 11:58 | P.PNPSI_ITS ---
Subjective Subjective Date of Service: 08/04/21 Reason For Visit: Psychosis Subjective Notes: Conditional Voluntary Healthcare Proxy: Yes Interim History: Met with patient. Discussed with Nursing. Loud last night. Interviewed with Danish-speaking staff. Presents as pleasantly confused. Has some right lower limb pain. Some slight swelling and calf tenderness. Is pointing to foot rather than calf area. No point tenderness on foot. Is ambulating. Eating and drinking ok. No depression. Some wandering Medication Compliance: Yes Review of Systems right leg pain/swelling- order ultrasound and x ray Review of Systems Review of Systems right leg pain/swelling- order ultrasound and x ray Mental Status Exam Mental Status Exam Narrative: Patient Appearance:?Well Grooomed Patient Orientation:?Person and Situation Level of Consciousness:?Awake Patient Behavior:?Cooperative Mood Description:?Withdrawn Affect Description:?Constricted Patient Cognition Impaired:?Yes Ability to Follow Directions:?Good Speech Pattern:?Clear Memory Description:?Intact Hallucinations:?None Thought Process:?Illogical and Distracted Thought Content:?positive for Poverty of Content and positive for Disorganized Judgement:?Poor Diagnostics Vital Signs (24Hr): Vital Signs - 24 hr 08/03/21 18:00 08/04/21 08:00 Temperature 98 F 98.6 F Pulse Rate 89 86 Respiratory Rate 14 16 Blood Pressure 133/75 100/59 L Pulse Oximetry 97 97 BMI result Body Mass Index 20.8 Labs Results: 08/01/21 18:20 08/01/21 18:20 Imaging Radiology Impressions: ITS Impressions Abdomen Ultrasound 08/02/21 10:00 IMPRESSION: No biliary ductal dilatation. There is a gallstone present without inflammatory change of the gallbladder. Heterogeneous liver parenchyma with nodular Contour suspicious for cirrhosis. No suspicious liver lesion. Medications Medications Current Medications Acetaminophen (Acetaminophen 325 Mg Tablet) 650 mg PO Q6H PRN PRN Reason: Headache/Pain Mild Scale (1-3) Last Admin: 08/03/21 23:20 Dose: 650 mg Documented by: Al Hydroxide/Mg Hydroxide (Magnesium Hydrox/Alum Hydrox 30 Ml Oral.Susp) 30 ml PO Q6H PRN PRN Reason: Heartburn/Nausea Hydroxyzine HCl (Hydroxyzine Hcl 25 Mg Tablet) 25 mg PO BEDTIME PRN PRN Reason: Anxiety Last Admin: 08/03/21 23:20 Dose: 25 mg Documented by: Magnesium Hydroxide (Milk Of Magnesia 30 Ml Oral.Susp) 30 ml PO DAILY PRN PRN Reason: Constipation Last Admin: 07/29/21 09:57 Dose: 30 ml Documented by: Melatonin (Melatonin 3 Mg Tablet) 3 mg PO BEDTIME [facility] Last Admin: 08/03/21 20:27 Dose: 3 mg Documented by: Omeprazole (Omeprazole 20 Mg Capsule.Dr) 20 mg PO DAILY@0630 [facility] Last Admin: 08/04/21 09:15 Dose: 20 mg Documented by: Risperidone (Risperidone 1 Mg Tablet) 1 mg PO BEDTIME [facility] Last Admin: 08/03/21 20:27 Dose: 1 mg Documented by: Trazodone HCl (Trazodone Hcl 50 Mg Tablet) 50 mg PO BEDTIME PRN PRN Reason: Insomnia Last Admin: 08/03/21 00:44 Dose: 50 mg Documented by: Trazodone HCl (Trazodone Hcl 100 Mg Tablet) 100 mg PO BEDTIME [facility] Last Admin: 08/03/21 20:27 Dose: 100 mg Documented by: Allergies Allergies Allergy/AdvReac Type Severity Reaction Status Date / Time Iodinated Contrast Media Allergy Unknown Verified 07/25/21 17:55 olanzapine AdvReac Unknown Verified 07/25/21 17:55 Assessment & Plan Assessment & Plan (1) Schizophrenia: Status: Acute Code(s): F20.9 - Schizophrenia, unspecified (2) Dementia: Status: Acute Code(s): F03.90 - Unspecified dementia without behavioral disturbance Plan elderly Salvadorean female with a long history of psychosis and dementia referred to this facility after she got agitated and threatened to kill herself. At the moment of the intake, the patient was having active psychotic symptoms. Plan 1. Gather collateral information. 2. Change Risperdal everything at bedtime. 3. Add trazodone 100 mg p.o. q.h.s. at night. 08/04/2021: No changes to team to primary treatment plan. right leg pain/swelling- order ultrasound and x ray I spent minutes with the patient and/or on the patient floor today, greater than?50% of which was spent counseling/coordinating care. Reason for contiued inpatient stay Substantial Risk for: inability to function
[2021-08-04 21:30] VITALS: BP 138/87; PULSE 101; RESP 16; TEMP 36.9; O2SAT 97
[2021-08-04] MEDS: traZODone HCL 100 MG TABLET PO (21:31)
[2021-08-04] MEDS: risperiDONE 1 MG TABLET PO (21:31)
[2021-08-04] MEDS: Melatonin 3 MG TABLET PO (21:32)
[2021-08-04] MEDS: Acetaminophen 325 MG TABLET 650 MG PO (21:33)
[2021-08-05 08:00] VITALS: BP 87/53; PULSE 81; RESP 16; TEMP 36.9; O2SAT 94
--- NOTE | 2021-08-05 08:22 | P.PNPSI_ITS ---
Subjective Subjective Date of Service: 08/05/21 Reason For Visit: Psychosis Subjective Notes: Conditional Voluntary (by HCP) Interim History: The nursing staff reported the patient has been pleasant and cooperative, over the weekend she complained of leg pain and she has a Doppler study with negative results also his Abdominal U/S came back without new findings. On interview the patient was pleasant and cooperative, confused but easily redirectable no evidence of agitation or paranoia. Mental Status Exam Mental Status Exam Patient Appearance: Appropriate Patient Orientation: Person and Situation Level of Consciousness: Awake Patient Behavior: Guarded and Passive Mood Description: Withdrawn Affect Description: Constricted Patient Cognition Impaired: Yes Ability to Follow Directions: Good Speech Pattern: Clear Hallucinations: None Delusions: Not Present Thought Process: Distracted and Evasive Thought Content: positive for [place] and positive for Poverty of Content Judgement: Fair Diagnostics Vital Signs (24Hr): Vital Signs - 24 hr 08/04/21 21:30 Temperature 98.4 F Pulse Rate 101 H Respiratory Rate 16 Blood Pressure 138/87 Pulse Oximetry 97 BMI result Body Mass Index 20.8 Labs Results: 08/01/21 18:20 08/01/21 18:20 Imaging Radiology Impressions: ITS Impressions Abdomen Ultrasound 08/02/21 10:00 IMPRESSION: No biliary ductal dilatation. There is a gallstone present without inflammatory change of the gallbladder. Heterogeneous liver parenchyma with nodular Contour suspicious for cirrhosis. No suspicious liver lesion. Foot X-Ray 08/04/21 13:25 IMPRESSION: 1. Mild soft tissue swelling without acute underlying osseous abnormality. 2. Very small degenerative calcaneal spurs. Venous Duplex 08/04/21 14:40 IMPRESSION: No DVT demonstrated in the right lower extremity. Medications Medications Current Medications Acetaminophen (Acetaminophen 325 Mg Tablet) 650 mg PO Q6H PRN PRN Reason: Headache/Pain Mild Scale (1-3) Last Admin: 08/04/21 21:33 Dose: 650 mg Documented by: Al Hydroxide/Mg Hydroxide (Magnesium Hydrox/Alum Hydrox 30 Ml Oral.Susp) 30 ml PO Q6H PRN PRN Reason: Heartburn/Nausea Hydroxyzine HCl (Hydroxyzine Hcl 25 Mg Tablet) 25 mg PO BEDTIME PRN PRN Reason: Anxiety Last Admin: 08/03/21 23:20 Dose: 25 mg Documented by: Magnesium Hydroxide (Milk Of Magnesia 30 Ml Oral.Susp) 30 ml PO DAILY PRN PRN Reason: Constipation Last Admin: 07/29/21 09:57 Dose: 30 ml Documented by: Melatonin (Melatonin 3 Mg Tablet) 3 mg PO BEDTIME [facility] Last Admin: 08/04/21 21:32 Dose: 3 mg Documented by: Omeprazole (Omeprazole 20 Mg Capsule.) 20 mg PO DAILY@0630 [facility] Last Admin: 08/04/21 09:15 Dose: 20 mg Documented by: Risperidone (Risperidone 1 Mg Tablet) 1 mg PO DAILY@1700 [facility] Trazodone HCl (Trazodone Hcl 50 Mg Tablet) 50 mg PO BEDTIME PRN PRN Reason: Insomnia Last Admin: 08/03/21 00:44 Dose: 50 mg Documented by: Trazodone HCl (Trazodone Hcl 100 Mg Tablet) 100 mg PO BEDTIME [facility] Last Admin: 08/04/21 21:31 Dose: 100 mg Documented by: Allergies Allergies Allergy/AdvReac Type Severity Reaction Status Date / Time Iodinated Contrast Media Allergy Unknown Verified 07/25/21 17:55 olanzapine AdvReac Unknown Verified 07/25/21 17:55 Assessment & Plan Assessment & Plan (1) Schizophrenia: Status: Acute Code(s): F20.9 - Schizophrenia, unspecified (2) Dementia: Status: Acute Code(s): F03.90 - Unspecified dementia without behavioral disturbance Plan elderly Algerian female with a long history of psychosis and dementia referred to this facility after she got agitated and threatened to kill herself. At the moment of the intake, the patient was having active psychotic symptoms. Plan 1. Gather collateral information. 2. Change Risperdal everything at bedtime. 3. Add trazodone 100 mg p.o. q.h.s. at night. 4. Add Aricept at night for dementia I spent __20____ minutes with the patient and/or on the patient floor today, greater than?50% of which was spent counseling/coordinating care. Reason for contiued inpatient stay Substantial Risk for: inability to function, rapid decompensation and med/psych decompensation
[2021-08-05] MEDS: Acetaminophen 325 MG TABLET 650 MG PO ×2 (09:51→15:31)
[2021-08-05] MEDS: Omeprazole 20 MG CAPSULE.DR PO (09:51)
--- NOTE | 2021-08-05 13:05 | MHC.CLN ---
F/U STAFF REPORTS THAT INTAKE IS USUALLY GOOD. DIET RX: REGULAR-APPROPRIATE. RECEIVING ENSURE BID TO INCREASE KCALS (700 KCALS, 40 G PROTEIN). WEIGHT ON 08/02 SHOWS LARGE DISCREPANCY FROM 07/25 WEIGHT. CONTINUE TO FOLLOW WEIGHTS FOR TREND. MONITOR PO INTAKE AND SUPPLEMENT ACCEPTANCE CLOSELY. RD TO FOLLOW WEEKLY.
[2021-08-05] MEDS: risperiDONE 1 MG TABLET PO (17:58)
[2021-08-05] MEDS: Magnesium Hydrox/Alum Hydrox 30 ML ORAL.SUSP PO (18:40)
[2021-08-05] MEDS: Donepezil HCl 5 MG TABLET 2.5 MG PO (20:19)
[2021-08-05] MEDS: traZODone HCL 100 MG TABLET PO (20:19)
[2021-08-05] MEDS: Melatonin 3 MG TABLET PO (20:19)
[2021-08-06 00:26] VITALS: BP 116/59; PULSE 91; RESP 16; TEMP 36.6; O2SAT 96
[2021-08-06] MEDS: hydrOXYzine HCL 25 MG TABLET PO (01:27)
[2021-08-06] MEDS: traZODone HCL 50 MG TABLET PO (01:28)
[2021-08-06] MEDS: Acetaminophen 325 MG TABLET 650 MG PO ×3 (01:28→20:35)
[2021-08-06 06:00] VITALS: BP 145/70; PULSE 79; RESP 16; TEMP 36.4; O2SAT 97
--- NOTE | 2021-08-06 08:21 | HO.PSYCHPN ---
Subjective Subjective Date of Service: 08/06/21 Reason For Visit: Psychosis Subjective Notes: Conditional Voluntary Interim History: The nursing staff reported the patient during the day was doing very well, confused but easily redirectable and pleasant. On the evening, she got agitated and she started yelling stating that she wanted to go home and pointing to the wall is stating that there was someone around. On interview, the patient denies new symptoms she wants to go home but she could not remember the agitated episode of the night before. Mental Status Exam Mental Status Exam Patient Appearance: Appropriate Patient Orientation: Person and Situation Level of Consciousness: Awake and Disoriented Patient Behavior: Guarded and Suspicious Mood Description: Withdrawn Affect Description: Constricted Patient Cognition Impaired: Yes Ability to Follow Directions: Good Speech Pattern: Clear Hallucinations: Auditory Delusions: Paranoid Ideation Thought Process: Racing Thought Content: positive for [place] and positive for Poverty of Content Judgement: Fair Diagnostics Vital Signs (24Hr): Vital Signs - 24 hr 08/06/21 00:26 Temperature 97.9 F Pulse Rate 91 Respiratory Rate 16 Blood Pressure 116/59 L Pulse Oximetry 96 BMI result Body Mass Index 20.8 Labs Results: 08/01/21 18:20 08/01/21 18:20 Imaging Radiology Impressions: ITS Impressions Abdomen Ultrasound 08/02/21 10:00 IMPRESSION: No biliary ductal dilatation. There is a gallstone present without inflammatory change of the gallbladder. Heterogeneous liver parenchyma with nodular Contour suspicious for cirrhosis. No suspicious liver lesion. Foot X-Ray 08/04/21 13:25 IMPRESSION: 1. Mild soft tissue swelling without acute underlying osseous abnormality. 2. Very small degenerative calcaneal spurs. Venous Duplex 08/04/21 14:40 IMPRESSION: No DVT demonstrated in the right lower extremity. Medications Medications Current Medications Acetaminophen (Acetaminophen 325 Mg Tablet) 650 mg PO Q6H PRN PRN Reason: Headache/Pain Mild Scale (1-3) Last Admin: 08/06/21 01:28 Dose: 650 mg Documented by: Al Hydroxide/Mg Hydroxide (Magnesium Hydrox/Alum Hydrox 30 Ml Oral.Susp) 30 ml PO Q6H PRN PRN Reason: Heartburn/Nausea Last Admin: 08/05/21 18:40 Dose: 30 ml Documented by: Donepezil HCl (Donepezil Hcl 5 Mg Tablet) 2.5 mg PO BEDTIME [facility] Last Admin: 08/05/21 20:19 Dose: 2.5 mg Documented by: Hydroxyzine HCl (Hydroxyzine Hcl 25 Mg Tablet) 25 mg PO BEDTIME PRN PRN Reason: Anxiety Last Admin: 08/06/21 01:27 Dose: 25 mg Documented by: Magnesium Hydroxide (Milk Of Magnesia 30 Ml Oral.Susp) 30 ml PO DAILY PRN PRN Reason: Constipation Last Admin: 07/29/21 09:57 Dose: 30 ml Documented by: Melatonin (Melatonin 3 Mg Tablet) 3 mg PO BEDTIME [facility] Last Admin: 08/05/21 20:19 Dose: 3 mg Documented by: Omeprazole (Omeprazole 20 Mg Capsule.Dr) 20 mg PO DAILY@0630 [facility] Last Admin: 08/06/21 07:00 Dose: Not Given Documented by: Risperidone (Risperidone 1 Mg Tablet) 1 mg PO DAILY@1700 [facility] Last Admin: 08/05/21 17:58 Dose: 1 mg Documented by: Trazodone HCl (Trazodone Hcl 50 Mg Tablet) 50 mg PO BEDTIME PRN PRN Reason: Insomnia Last Admin: 08/06/21 01:28 Dose: 50 mg Documented by: Trazodone HCl (Trazodone Hcl 100 Mg Tablet) 100 mg PO BEDTIME [facility] Last Admin: 08/05/21 20:19 Dose: 100 mg Documented by: Allergies Allergies Allergy/AdvReac Type Severity Reaction Status Date / Time Iodinated Contrast Media Allergy Unknown Verified 07/25/21 17:55 olanzapine AdvReac Unknown Verified 07/25/21 17:55 Assessment & Plan Assessment & Plan (1) Schizophrenia: Status: Acute Code(s): F20.9 - Schizophrenia, unspecified (2) Dementia: Status: Acute Code(s): F03.90 - Unspecified dementia without behavioral disturbance Plan elderly Citizen [place] female with a long history of psychosis and dementia referred to this facility after she got agitated and threatened to kill herself. At the moment of the intake, the patient was having active psychotic symptoms. Plan 1. Gather collateral information. 2. Change Risperdal everything at bedtime. 3. Add trazodone 100 mg p.o. q.h.s. at night. 4. Add Aricept at night for dementia. 5. Added Risperdal 0.5 at night. 5. Discharge tomorrow if she is better. I spent ___20___ minutes with the patient and/or on the patient floor today, greater than?50% of which was spent counseling/coordinating care. Reason for contiued inpatient stay Substantial Risk for: inability to function, rapid decompensation and med/psych decompensation
[2021-08-06] MEDS: risperiDONE 1 MG TABLET PO (16:19)
[2021-08-06 18:00] VITALS: BP 122/67; PULSE 102; RESP 18; TEMP 36.1; O2SAT 95
[2021-08-06] MEDS: Melatonin 3 MG TABLET PO (20:34)
[2021-08-06] MEDS: Donepezil HCl 5 MG TABLET 2.5 MG PO (20:34)
[2021-08-06] MEDS: risperiDONE 0.5 MG TABLET PO (20:34)
[2021-08-06] MEDS: traZODone HCL 100 MG TABLET PO (20:35)
[2021-08-07] MEDS: Omeprazole 20 MG CAPSULE.DR PO (06:52)
--- NOTE | 2021-08-07 08:20 | PM.PSYDC ---
DS: Providers Provider Date of Service: 08/07/21 Date of admission: 07/25/21 12:43 Date of discharge: 08/07/21 Primary care physician: Unknown Physician Consults: 07/25/21 10:58 Consult to Hospitalist Routine Consulting Provider: Hospitalist Reason For Exam: Direct admission from [facility] ED DS: Diagnosis Discharge Diagnosis (1) Schizophrenia: Status: Acute (2) Dementia: Status: Acute DS: Medications Discharge Medications Home Medications: Home Medications Medication Instructions Recorded Confirmed Haldol 1 mg PO TID 07/25/21 07/25/21 chlorpromazine 25 mg PO BEDTIME PRN 07/25/21 07/25/21 diphenhydramine HCl 25 tab PO Q4H PRN 07/25/21 07/25/21 melatonin 3 mg PO BEDTIME 07/25/21 07/25/21 pantoprazole 40 mg tablet,delayed 40 mg PO DAILY 07/25/21 07/25/21 release risperidone 0.25 mg PO BID PRN 07/25/21 07/25/21 trazodone 25 mg PO BEDTIME 07/25/21 07/25/21 Mental Status Exam Mental Status Exam Patient Appearance: Appropriate Patient Orientation: Person and Situation Level of Consciousness: Awake and Disoriented Patient Behavior: Guarded and Suspicious Mood Description: Withdrawn Affect Description: Constricted Patient Cognition Impaired: Yes Ability to Follow Directions: Good Speech Pattern: Clear Hallucinations: None Delusions: Not Present Thought Process: Distracted and Evasive Thought Content: positive for [place], positive for Poverty of Content, positive for Loose Associations and positive for Tangential Judgement: Fair Data Data Completed and Pending Completed studies during hospitalization [Text1]: 08/01/21 08/01/21 18:20 18:20 WBC 4.5 L RBC 4.06 L Hgb 11.7 L Hct 36.7 L MCV 90.4 MCH 28.8 MCHC 31.9 RDW 15.0 Plt Count 143 L D MPV 12.0 Immature Gran % (Auto) 0.4 Neut % (Auto) 65.9 Lymph % (Auto) 23.2 [place] % (Auto) 8.8 Eos % (Auto) 1.3 Baso % (Auto) 0.4 Lymph # (Auto) 1.1 L [place] # (Auto) 0.4 Eos # (Auto) 0.1 Baso # (Auto) 0.0 Abs Immat Gran (auto) 0.02 Absolute Neuts (auto) 3.0 Absolute Nucleated RBC 0.000 Nucleated RBC % (auto) 0.0 Sodium 136 Potassium 4.3 Chloride 102 Carbon Dioxide 23 Anion Gap 15 BUN 30 H D Creatinine 0.78 Estim Creat Clear Calc 29.6 Estimated GFR > 60 Random Glucose 143 H Calcium 9.2 Total Bilirubin 0.7 Direct Bilirubin 0.3 AST 23 ALT 15 Alkaline Phosphatase 70 Total Protein 6.6 Albumin 3.7 Imaging Diagnostic Imaging Impressions Abdomen Ultrasound 08/02/21 10:00 IMPRESSION: No biliary ductal dilatation. There is a gallstone present without inflammatory change of the gallbladder. Heterogeneous liver parenchyma with nodular Contour suspicious for cirrhosis. No suspicious liver lesion. Foot X-Ray 08/04/21 13:25 IMPRESSION: 1. Mild soft tissue swelling without acute underlying osseous abnormality. 2. Very small degenerative calcaneal spurs. Venous Duplex 08/04/21 14:40 IMPRESSION: No DVT demonstrated in the right lower extremity. DS: Summary Hospital Course Hospital Course: The patient was admitted for exacerbation of her loosen a shins, disorganized behavior and agitation in the context of poor compliance with treatment and limited social support. Please see HPI for the admission note for further details. On admission we reviewed the medication reconciliation and she had several antipsychotics prescribed at subtherapeutic dosis. Apparently her compliance was doubtful. We discussed risks, benefits, side-effects and alternatives with the patient and her family and we started Risperdal titrated up to 1 mg p.o. at 17:00 and 0.5 at night. It was noticed by the nursing staff the patient worsen her behavior mostly in the evening that is why we changed the timing of her Risperdal. The patient's mood and psychosis improved, she was pleasant and cooperative, fully compliant with treatment with resolution of agitation. Since there were no safety concerns we discussed discharge planning. We had several family meetings with her family and apparently they want to take care of her even though the probably she will need for care pretty soon. Status at Discharge Cognitive/behavioral status at discharge: Limited cognition Functional status at discharge: uses cane/walker Overall status at discharge: patient is back to baseline Time Spent with Patient Time attestation: Total time spent providing and/or coordinating discharge services: Time spent: Less than 30 minutes Discharge Plan Discharge Patient Disposition: Home Health Service Discharge Diagnosis: schizophrenia Dementia Referrals: [facility] [Other] - 09/04/21 10:00 am (Appointment scheduled with Neeru Angela on Saturday, September 04, 2021 @ 10 AM via TELE[facility]. Will call sons phone.) Physician,Unknown J [Primary Care Provider] - 1 Week Discharge Medications: New acetaminophen 325 mg Tablet 650 mg PO Q6H PRN (Reason: Headache/Pain Mild Scale (1-3)) 30 Days Qty: 90 0RF donepezil 5 mg Tablet 2.5 mg PO BEDTIME 30 Days Qty: 15 0RF trazodone 50 mg Tablet 50 mg PO BEDTIME PRN (Reason: Insomnia) 30 Days Qty: 30 0RF trazodone 100 mg Tablet 100 mg PO BEDTIME 30 Days Qty: 30 0RF risperidone 1 mg Tablet 1 mg PO DAILY@1700 30 Days Qty: 30 0RF risperidone 0.5 mg Tablet 0.5 mg PO BEDTIME 30 Days Qty: 30 0RF Continued pantoprazole 40 mg Tablet,Delayed Release (Dr/Ec) 40 mg PO DAILY 30 Days Qty: 30 0RF melatonin 3 mg tablet 3 mg PO BEDTIME 30 Days Qty: 30 0RF Discontinued Haldol 1 mg tablet 1 mg PO TID 0RF chlorpromazine 25 mg tablet 25 mg PO BEDTIME PRN (Reason: Insomnia) 0RF Label Comments: May repeat q1 hour until 0300 if awake. diphenhydramine HCl 25 mg tablet 25 tab PO Q4H PRN (Reason: Insomnia) 0RF risperidone 0.25 mg tablet 0.25 mg PO BID PRN (Reason: Anxiety) 0RF trazodone 25 mg tablet 25 mg PO BEDTIME 0RF Discharge Orders: Discharge Order (Routine); Ordered 08/07/21 Ordered By: Kaveh Rodriguez Diet: advance to usual diet Activity on Discharge: As tolerated Stand Alone Forms: Patient Portal Discharge page Care Plan Goals: care plan goals achieved in this admission Health Concerns: continue outpatient as per primary care physician Plan of Treatment: medication management. Psychotherapy. Assessment: Elderly female, only Gabonese-speaking with a long history of schizophrenia and dementia admitted for exacerbation of symptoms. At this time safe in the community.
[2021-08-07 08:31] VITALS: BP 97/59; PULSE 77; RESP 14; TEMP 36.6; O2SAT 94
--- NOTE | 2021-08-07 10:14 | PC.NURSE ---
Patient is ready and aware of discharge. NO SI/HI/AH/VH. Patient is alert and oriented to self Vague to situation and time. Paperwork reviewed with patient and family member. No questions at this time. Patient to follow up with providers and all discharge paperwork faxed to providers.
== END 2021-08-07 11:10 | disposition home health service (06) | DRG 885 ==
PROVIDERS: Admitting Provider Psychiatry & Neurology Psychiatry; Visit Provider Psychiatry & Neurology Psychiatry
DX: F20.9 Schizophrenia, unspecified (principal); R45.851 Suicidal ideations; G30.9 Alzheimer's disease, unspecified; F02.80 Dementia in other diseases classified elsewhere, unspecified severity, without behavioral disturbance, psychotic disturbance, mood disturbance, and anxiety; Z23 Encounter for immunization; Z88.8 Allergy status to other drugs, medicaments and biological substances; Z91.041 Radiographic dye allergy status; Z87.891 Personal history of nicotine dependence; Z79.899 Other long term (current) drug therapy
CPT/HCPCS: 36415; 73620; 76700; 80048; 80053; 80061; 80076; 81003; 83036; 84443; 85025; 90686; 93971